=== PATIENT | male | born 1970 | race Caucasian/White ===

== ENCOUNTER 2024-10-17 17:04 | Emergency (ER) | payer OTHER, SELFPAY ==
[2024-10-17 17:12] VITALS: BP 130/74; PULSE 97; RESP 18; O2SAT 97; BMI 25.7
--- NOTE | 2024-10-17 17:17 | ED.GENADULT ---
HPI - General Adult General Chief complaint: Flank Pain Stated complaint: Kidney stone Time Seen by Provider: 10/17/24 17:09 History of Present Illness HPI narrative: Patient was seen at [facility] today for R flank pain that started when he woke up. sent him to [place] for a CT scan. He was called recently and told his has an obstructing 6x4 stone, high creatinine, high CBC. 54-year-old man presenting to the emergency department with concern of right flank pain. 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 Presented to urgent care or lab work was done and then sent to [facility] where had a CT scan. Was contacted with the results of labs and CT later and directed to present to the emergency department. Apparently pain has settled a little bit but still certainly present. No dysuria or hematuria noted. Concern is noted of elevated white count, bacteria in urine and creatinine which apparently has doubled since last checked about a year ago. In addition to CT scan showing ?obstructing 6 x 4mm stone. Does have a more remote history of quarter-sized ?kidney stone? requiring what sounds like lithotripsy. Sounds like no problems since. Later review reports reliable hives with ibuprofen intake. Related Data Previous Rx's ?Medication ?Instructions ?Recorded tamsulosin 0.4 mg capsule (Flomax) 0.4 mg PO DAILY #14 caps 10/17/24 Allergies Allergy/AdvReac Type Severity Reaction Status Date / Time ibuprofen Allergy Intermediate Hives Verified 10/17/24 17:12 Review of Systems Status of ROS: Reports: 6 or more systems reviewed and unremarkable except as noted in History and below Exam Narrative: Exam Narrative: Pleasant. NAD. Breathing easily. Abdomen is soft with right flank tenderness to percussion. Otherwise nontender. Extremities are well perfused without apparent edema. Heart in elevated rate. Const: Vital Signs, click to edit/add: Vital Signs - 24 hr 10/17/24 17:12 Pulse Rate [Pulse Oximeter] 97 Respiratory Rate 18 Blood Pressure [Ri ght Upper Arm] 130/74 Pulse Oximetry 97 Oxygen Delivery Me thod Room Air Documenting provider has reviewed patient's vital signs: yes Course Vital Signs Vital signs: Initial Vital Signs Temperature Source Temporal Artery Scan 10/17/24 17:12 Pulse Rate 97 10/17/24 17:12 Respiratory Rate 18 10/17/24 17:12 Blood Pressure 130/74 10/17/24 17:12 Blood Pressure Mean 92 10/17/24 17:12 Blood Pressure Position Sitting 10/17/24 17:12 Pulse Oximetry 97 10/17/24 17:12 Oxygen Delivery Method Room Air 10/17/24 17:12 Vital Signs Pulse Rate 97 10/17/24 17:12 Respiratory Rate 18 10/17/24 17:12 Blood Pressure 130/74 10/17/24 17:12 Pulse Oximetry 97 10/17/24 17:12 Oxygen Delivery Method Room Air 10/17/24 17:12 Pulse Rate 97 10/17/24 17:12 Respiratory Rate 18 10/17/24 17:12 Blood Pressure 130/74 10/17/24 17:12 Pulse Oximetry 97 10/17/24 17:12 Oxygen Delivery Method Room Air 10/17/24 17:12 Medications Administered Medications: Discontinued Medications Generic Name Dose Route Start Last Admin Trade Name Freq PRN Reason Stop Dose Admin Ondansetron HCl 4 mg 10/17/24 17:33 10/17/24 18:00 Ondansetron Odt 4 Mg Tab PO 10/17/24 17:34 4 mg ONCE ONE Administration Oxycodone HCl 7.5 mg 10/17/24 17:33 10/17/24 17:59 Oxycodone 5 Mg Tablet PO 10/17/24 17:34 7.5 mg ONCE ONE Administration Tamsulosin HCl 0.4 mg 10/17/24 17:33 10/17/24 18:00 Tamsulosin Hcl 0.4 Mg Capsule PO 10/17/24 17:34 0.4 mg DAILY ONE Administration Medical Decision Making [facility] Narrative Medical decision making narrative: Will try to obtain labs, records/imaging for review. He would appreciate something for pain would prefer oral at this point. Can hydrate. However has experienced nausea. Had taken acetaminophen. Ordered for oxycodone, Zofran and tamsulosin. Would check urinalysis to confirm apparent concerns of infection. Bacteria in urine I think most likely incidental at least infection inconsistent with timing of apparent ureteral stone. I am able to locate images of CT abdomen pelvis without contrast obtained from 10/17/2024 does show by my independent review moderate right-sided hydronephrosis and as described an approximately 6 x 4 mm stone however in the distal right ureter. Bilateral small kidney stones are noted as well. Records then obtained of labs with CBC showing a white count of 14.3 neutrophils predominant. Chemistries show creatinine of 1.3. Prior checked in 2021 with a creatinine of 0.82. This is a point of care creatinine I would note checked today. Urinalysis from earlier today as well showing cloudy urine 3+ ketones but negative for nitrite and leukocyte esterase and then with moderate bacteria along with sediment. I am not sure what to make of this urinalysis but does not really look infected. White count could be in part a stress response. Radiology over-read of CT imaging confirming 6 x 4 mm stone in the mid to distal right ureter with moderate hydronephrosis. This stone I think is still passable and furthermore it is rather distal looks like it is about to drop into the pelvis. Repeating urinalysis here in this emergency department today is reassuring. Would focus on hydration given findings. Still with pain but overall improved during time in the emergency department I do not think any further evaluation is necessary. I would recheck this singular point of care creatinine. Pain controlled. I did attempt to reach [facility] on-call to discuss further in anticipating follow-up with them but did not receive a call back. See patient discharge plan for further discussion I have not heard back from Urology at this point. I will let you know if I hear any further recommendations from them. I have contacted [facility] anticipating your potential follow-up with them as one of the larger groups. Will be prescribing Percocet and Zofran from [facility]. You can follow-up later in the pharmacy for regular dosing with Flomax. Continue this until you suspect that the stone has passed. Strain your urine over this coming week. Stay well hydrated with water. Your follow-up with primary care sounds to be good timing in 5 days at which point they can recheck your labs. Return otherwise for increasing and uncontrolled pain, intractable vomiting or fever. Normally I would have people take ibuprofen or similar NSAID regularly but it sounds like in your case given reliable reporting of hives, that might not be such a good idea. Medical Records Medical records reviewed: Yes I reviewed the patient's medical records Lab Data Lab results reviewed: Yes I reviewed the patient's lab results Labs: Lab Results 10/17/24 Range/Units 18:15 Urine Color Yellow (Yellow) Urine Appearance Clear (Clear) Urine pH 6.5 (5.0-8.5) Ur Specific [place]lyn 1.015 (1.000-1.030) Urine Protein Negative (Negative) Urine Glucose (UA) Negative (Negative) Urine Ketones 2+ A (Negative) Urine Blood Trace-lysed A (Negative) Urine Nitrite Negative (Negative) Urine Bilirubin Negative (Negative) Urine Urobilinogen 0.2 (0.2-1.0) Ur Leukocyte Esterase Negative (Negative) Urine RBC 0-2 (0-2) Urine WBC 0-2 (0-5) Ur Squamous Epith Cells None (None-Few) Urine Bacteria Few A (None) Discharge Plan Discharge Clinical Impression: Right ureteral stone, Ureteral colic Patient Disposition: Home w/ Parent or Adult Condition: Stable Additional Instructions: I have not heard back from Urology at this point. I will let you know if I hear any further recommendations from them. I have contacted [facility] anticipating your potential follow-up with them as one of the larger groups. Will be prescribing Percocet and Zofran from [facility]. You can follow-up later in the pharmacy for regular dosing with Flomax. Continue this until you suspect that the stone has passed. Strain your urine over this coming week. Stay well hydrated with water. Your follow-up with primary care sounds to be good timing in 5 days at which point they can recheck your labs. Return otherwise for increasing and uncontrolled pain, intractable vomiting or fever. Normally I would have people take ibuprofen or similar NSAID regularly but it sounds like in your case given reliable reporting of hives, that might not be such a good idea. Prescriptions: New tamsulosin [Flomax] 0.4 mg capsule 0.4 mg PO DAILY Qty: 14 0RF Follow Up/Referrals: Rhina Barlow MD [Primary Care Provider] - Stand Alone Forms: [employer] Info Instructions
[2024-10-17] MEDS: OXYCODONE 5 MG TABLET 7.5 MG PO (17:59)
[2024-10-17] MEDS: ONDANSETRON ODT 4 MG TAB PO (18:00)
[2024-10-17] MEDS: TAMSULOSIN HCL 0.4 MG CAPSULE PO (18:00)
[2024-10-17 18:25] LABS: Appearance Urine Clear (Clear); Bilirubin Urine Negative (Negative); Blood Urine Trace-lysed (Negative); Color Urine Yellow (Yellow); Glucose Urine Negative (Negative); Ketones Urine 2+ (Negative); Leukocyte Esterase Urine Negative (Negative); Nitrite Urine Negative (Negative); Protein Urine Negative (Negative); Specific Gravity Urine 1.015 (1.000-1.030); Urobilinogen Urine 0.2 (0.2-1.0); pH Urine 6.5 (5.0-8.5)
[2024-10-17 18:32] LABS: Bacteria Urine Few; RBC Urine 0-2 (0-2); WBC Urine 0-2 (0-5)
== END 2024-10-17 19:32 | disposition home or self-care (01) ==
PROVIDERS: Emergency Provider Family Medicine; PCP Family Medicine
DX: N20.1 Calculus of ureter (principal)
CPT/HCPCS: 81001; 87086; 99283; 99284; A9270